=== PATIENT | male | born 1995 | race Two or more races ===

== ENCOUNTER 2017-07-30 11:29 | Day surgery (SDC) | payer OTHER ==
[~2017-07-30] VITALS: Ht 170.2 cm; Wt 66.2 kg
[~2017-07-30 11:29] MED LIST: ALBU90OI; ALBU90OI6 INH; Antivert25 MG PO; CETI5; IBUP800 PO; MONT10T; PRED20 PO; QNASL8.7 GM; Ultram50 MG PO
[2017-07-30] MEDS ORDERED: QVAR (12:27)
== END 2017-07-30 17:15 | disposition home or self-care (01) ==
LOC: ORSCSDS 11:29
PROVIDERS: Orthopaedic Surgery
PROC: 0RQK4ZZ Repair Left Shoulder Joint, Percutaneous Endoscopic Approach (ICD-10-PCS; principal; 2017-07-30 13:00)
DX: M24.412 Recurrent dislocation, left shoulder (principal); J45.909 Unspecified asthma, uncomplicated; Z79.899 Other long term (current) drug therapy
CPT/HCPCS: C1713; J0171; J0690; J1100; J1885; J2250; J2370; J2405; J3010; J7120